=== PATIENT | male | born 1985 | race Hispanic/Latino ===

== ENCOUNTER 2019-08-03 18:42 | Inpatient (IN) | payer SELFPAY, OTHER ==
[~2019-08-03] VITALS: Ht 180.3 cm; Wt 113.4 kg
--- OUTSIDE RECORDS SUMMARY | 2019-08-03 18:45 | XMS REPORT ---
[facility] Unknown Phone Unavailable Care Team Providers Care Sweet Pickle Maker Name Role Phone Unavailable Unavailable Payers Payer Name Policy Type Policy Number Effective Date Expiration Date Problems This patient has no known problems. Allergies, Adverse Reactions, Alerts Allergy Name Allergy Type Status Severity Reaction(s) Onset Date Inactive Date Treating Clinician Comments No Known Allergies DA Active U 2013-08-06 00:00:00 Medications This patient has no known medications. Results Test Description Test Time Test Comments Text Results Atomic Results Result Comments STREPTOCOCCUS PCR SCREEN 2019-08-02 08:41:00 STREPTOCOCCUS DYSGALACTIAE (test code=STREPGC) NEGATIVE FOR G/C NEGATIVE STREPA MOLECULAR (test code=STREPAMOL) NEGATIVE FOR GRP A NEGATIVE
[2019-08-03] MEDS ORDERED: PIPER-TAZ 3.375 GM 50 ML IV STA (20:20)
[2019-08-03] MEDS ORDERED: ACETAMINOPHEN 325 MG TAB PO ONE (20:30)
--- NOTE | 2019-08-03 20:30 | Diagnostic Imaging Report ---
EXAMINATION: CHEST SINGLE (PORTABLE) INDICATION: ^Y ^cough ^[id number] ^1950 COMPARISON: None FINDINGS: AP view TUBES and LINES: None. LUNGS: Lungs are well inflated. Mild bilateral hilar reticular opacities. No lobar consolidations. No pulmonary edema. PLEURA: No pleural effusion or pneumothorax. HEART AND MEDIASTINUM: The cardiomediastinal silhouette is unremarkable.. BONES AND SOFT TISSUES: No acute osseous lesion. Soft tissues are unremarkable. UPPER ABDOMEN: No free air under the diaphragm. IMPRESSION: Nonspecific bilateral hilar peribronchial wall thickening may reflect bronchitis. Signed by: Dr. Kezia Pearce M.D. on 08/03/2019 8:26 PM
[2019-08-03] MEDS ORDERED: PIPER-TAZ 3.375 GM 50 ML ONE (20:40)
[2019-08-03 21:09] LABS: BASOPHILS % 0.2 % (0.0-1.0); EOSINOPHILS % 0.4 % (0.0-6.0); HEMATOCRIT 45.4 % (38.2-49.6); HEMOGLOBIN 15.8 g/dL (14.0-18.0); LYMPHOCYTES % 18.7 % (18.0-39.1); MEAN CORPUSCULAR HEMOGLOBIN 30.2 pg (28-32); MEAN CORPUSCULAR HGB CONC 34.8 g/dL (31-35); MEAN CORPUSCULAR VOLUME 86.6 fL (81-99); MONOCYTES # (AUTO) 0.4 (0.2-0.8); MONOCYTES % 7.3 % (4.4-11.3); PLATELET COUNT 183 x10e3/uL (140-360); RED BLOOD COUNT 5.24 x10e6/uL (4.3-5.7)
[2019-08-03] MEDS ORDERED: SODIUM CHLORIDE 0.9% 1000ML 1,000 ML ONE (21:10)
[2019-08-03] MEDS ORDERED: SODIUM CHLORIDE 0.9% 1000ML 1,000 ML IV ONE (21:15)
[2019-08-03 21:23] LABS: ALANINE AMINOTRANSFERASE 80 IU/L (0-55); ALBUMIN 3.8 g/dL (3.5-5.0); ALBUMIN/GLOBULIN RATIO 1.1 (0.8-2.0); ALKALINE PHOSPHATASE 100 IU/L (40-150); ANION GAP 14.8 mmol/L (8-16); BLOOD UREA NITROGEN 12 mg/dL (7-26); BUN/CREATININE RATIO 10 (6-25); CARBON DIOXIDE 25 mmol/L (22-29); CHLORIDE 99 mmol/L (98-107); CREATINE KINASE 66 IU/L (30-200); CREATININE, SERUM 1.22 mg/dL (0.72-1.25); EST GLOMERULAR FILTRATION RATE > 60 ML/MIN (60-); GLUCOSE 103 mg/dL (74-118); POTASSIUM 3.8 mmol/L (3.5-5.1); SODIUM 135 mmol/L (136-145)
--- NOTE | 2019-08-03 22:30 | NUR ---
PT RESTING, VITAL SIGNS STABLE, PT TO BE ADMITTED, PT AWARE OF POC, PT VOICES NO COMPLAINTS AT THIS TIME.
[2019-08-04] VITALS (7 sets, daily range): BP systolic 108–139; BP diastolic 59–79
[2019-08-04] MEDS: SODIUM CHLORIDE 0.9% 1000ML 1,000 ML IV SCH ×2 (01:15→08:39)
[2019-08-04] MEDS: BENZONATATE 100 MG CAP PO PRN ×2 (04:53→11:10)
[2019-08-04] MEDS: ACETAMINOPHEN 325 MG TAB PO PRN ×2 (04:53→12:14)
[2019-08-04 05:06] LABS: BASOPHILS % 0.3 % (0.0-1.0); EOSINOPHILS % 0.5 % (0.0-6.0); HEMATOCRIT 41.3 % (38.2-49.6); LYMPHOCYTES # (AUTO) 1.1 (1.0-3.2); LYMPHOCYTES % 27.3 % (18.0-39.1); MEAN CORPUSCULAR HEMOGLOBIN 29.9 pg (28-32); MEAN CORPUSCULAR HGB CONC 33.9 g/dL (31-35); MEAN CORPUSCULAR VOLUME 88.1 fL (81-99); MONOCYTES # (AUTO) 0.3 (0.2-0.8); MONOCYTES % 7.1 % (4.4-11.3); NEUTROPHILS # (AUTO) 2.5 (2.1-6.9); NEUTROPHILS % 64.3 % (38.7-80.0); PLATELET COUNT 155 x10e3/uL (140-360); RED BLOOD COUNT 4.69 x10e6/uL (4.3-5.7); RED CELL DISTRIBUTION WIDTH 11.9 % (11.7-14.4)
[2019-08-04 05:29] LABS: ALANINE AMINOTRANSFERASE 70 IU/L (0-55); ALBUMIN 3.3 g/dL (3.5-5.0); ALKALINE PHOSPHATASE 88 IU/L (40-150); ANION GAP 11.8 mmol/L (8-16); BILIRUBIN,DIRECT 0.5 mg/dL (0.0-0.5); BLOOD UREA NITROGEN 12 mg/dL (7-26); BUN/CREATININE RATIO 10 (6-25); CALCIUM 8.2 mg/dL (8.4-10.2); CARBON DIOXIDE 26 mmol/L (22-29); CHLORIDE 103 mmol/L (98-107); CREATININE, SERUM 1.16 mg/dL (0.72-1.25); EST GLOMERULAR FILTRATION RATE > 60 ML/MIN (60-); GLUCOSE 95 mg/dL (74-118); POTASSIUM 3.8 mmol/L (3.5-5.1); SODIUM 137 mmol/L (136-145)
--- NOTE | 2019-08-04 07:12 | NUR ---
RECEIVED PATIENT RESTING IN BED NO S/S OF DISTRESS. BED LOW, WHEELS LOCKED, SIDE RAILS X2. CALL LIGHT IN REACH WILL CONTINUE TO MONITOR PATIENT.
--- NOTE | 2019-08-04 08:21 | NUR ---
GAVE PACKET OF INFORMATION WITH COMMUNITY [employer] FOR ASSISTANCE WITH LOW TO NO INCOME TO PATIENT. RESOURCES THAT PATIENT MAY BE ABLE TO FOLLOW UP UPON DISCHARGE. PT EDUCATED ON EACH RESOURCE AND UNDERSTANDING HOW TO FOLLOW UP TO SEE IF QUALIFIED FOR EACH RESOURCE.
--- NOTE | 2019-08-04 08:58 | NUR ---
Telephonic visit. Pt. expressed no spiritual or emotional concerns at this time. Concrete Technician provided hospitality and information on how to reach kelly machine operator, if needed. No need to follow at this time. CHILANGO TAYLOR Concrete Technician Spiritual Care Department O: [phone]
[2019-08-04] MEDS ORDERED: PIPER-TAZ 3.375 GM 50 ML IV SCH (12:00)
--- NOTE | 2019-08-04 12:39 | History and Physical ---
HISTORY OF PRESENT ILLNESS: A 33-year-old male with no past medical history, came here with cough and fever. The patient has been placed in the coronavirus unit to rule out COVID-19. REVIEW OF SYSTEMS: CARDIOVASCULAR: No chest pain or palpitation. RESPIRATORY: He did have cough, but no shortness of breath. GASTROINTESTINAL: No nausea or vomiting. No diarrhea. GENITOURINARY: No frequency or dysuria. ALLERGIES: NOT ALLERGIC TO ANYTHING. PAST MEDICAL HISTORY: Negative for any significant medical conditions. PHYSICAL EXAMINATION: HEART: Showed regular rhythm. Normal S1 and S2 sound. LUNGS: Clear bilaterally. ABDOMEN: Soft. EXTREMITIES: Show no evidence of cyanosis or hematoma. VITAL SIGNS: Temperature is 99.4, heart rate 85 per minute, respiratory rate 18 per minute, blood pressure 108/59, pulse oximetry 95%. LABORATORY DATA: Chest x-ray showed nonspecific bilaterally, peribronchial wall thickening may reflect bronchitis. Coronavirus test is pending. Influenza A and B tests are negative. On the CBC; white count 3.95, hemoglobin 14.0, hematocrit 41.3, and platelet count 155,000. On the CMP; sodium 137, potassium 3.8, chloride 103, CO2 of 26, anion gap 11.8, BUN 12, creatinine 1.16, GFR 60, glucose 95. Lactic acid 0.7, calcium 8.2, total bilirubin 1.1, direct bilirubin 0.5, AST 33, ALT 70, alkaline phosphatase 88, total protein 6.5, albumin 3.3, globulin 3.2, albumin and globin ratio 1.0. FINAL IMPRESSION: 1. Acute bronchitis. 2. Fever, rule out COVID-19 infection. PLAN OF TREATMENT: The patient is going to continue with Tessalon Perles 100 mg q.6 hours as needed for cough, Tylenol 650 mg q.4 hours as needed for pain or fever. He has been empirically started on Zosyn 3.375 g IV q.[address] Prakash in the meantime for Infectious Diseases. We are going to order a CT of the chest also to rule out any pneumonia. The patient is assessed in contact and respiratory isolation. MD ANGELICA Plasencia/MODL /[id number]
[2019-08-04] MEDS ORDERED: GUAIFENESIN/DEXTROMETHORPHAN LIQD 5 ML UDC PO PRN (12:45)
[2019-08-04] MEDS ORDERED: ZITHROMAX1 GM (13:27)
[2019-08-04] MEDS ORDERED: AUGMENTIN 875-1 EACH PO (13:29)
--- NOTE | 2019-08-04 13:29 | Consultation ---
DATE OF CONSULTATION: HISTORY OF PRESENT ILLNESS: Mr. Galaviz is a very pleasant 33-year-old male. Denies any past medical history. He does have underlying history of obesity. The patient comes in with cough and fever. He has been sick for 3 to 4 days. He went to [facility]. They gave him a cough syrup and discharged home, but since we were in the mid of COVID-19 epidemic, the patient came back here where he is admitted. The test was sent. PAST MEDICAL HISTORY: Denies. PAST SURGICAL HISTORY: Denies. ALLERGIES: NKA. SOCIAL HISTORY: Denies smoking, drug abuse, or alcohol abuse. FAMILY HISTORY: Otherwise noncontributory. REVIEW OF SYSTEMS: When I saw the patient today, he said he is feeling better. His cough is better. He has been running low fever, but he is not short of breath. PHYSICAL EXAMINATION: GENERAL: He is currently alert, oriented, does not seem to be in acute distress. VITAL SIGNS: Stable, currently afebrile except for 100.4. HEENT: He is not icteric. NECK: Supple. CHEST: Clear bilateral. HEART: S1 and S2. No S3, S4, or murmur. ABDOMEN: Soft. Bowel sounds present. No tenderness. EXTREMITIES: No edema. SKIN: No rash. IMPRESSION: Bronchitis, viral, maybe COVID-19. His test was sent; however, clinically the patient looks really good. The patient could be discharged home with a Z-Juan and 5 days of Augmentin. Follow up as an outpatient. Call me if he get worse. To stay for 2 weeks until we get COVID-19 in quarantine. Carolann SALGADO p.r.n., and follow up as needed and to call me if needed. Discussed with Internal Medicine and discussed with Medical Team. MD CHRISTOPHER Nayak/CARSON /[id number]
--- NOTE | 2019-08-04 14:15 | NUR ---
REMOVED PATIENTS IV. CATHETER TIP INTACT AND PRESSURE DRESSING APPLIED.
--- NOTE | 2019-08-04 15:17 | NUR ---
patient discahrged from facility. patient gathered all personal belongings, discharge instructions, and follow up information. patient left unit via wheelchair and went home private auto. no s/s of distress when leaving facility.
--- NOTE | 2019-08-04 19:46 | Discharge Summary ---
HOSPITAL COURSE: A 33 years old male with no past medical history, came here with cough and fever. The patient was diagnosed with upper respiratory infection. Dr. Prakash infectious Disease saw the patient. He recommended the patient to be discharged home today on Z-Juan, and also on contact and respiratory isolation at home for at least 14 days. They checked for COVID-19, have been sent, but it will take at least three days, so I have discussed the case with Dr. Prakash, Infectious Disease store sales consultant. He recommended the patient can go home with oral Zithromax and contact isolation for 14 days and wait for the report to be ready. The patient has no respiratory distress. Oxygen is fine. He has no fever, no hypotension, no significant respiratory symptoms except for the cough. PHYSICAL EXAMINATION: HEART: Showed regular rhythm. Normal S1, S2 sound. LUNGS: Clear bilaterally. FINAL IMPRESSION: 1. Acute bronchitis, rule out COVID-19 infection. 2. Obesity. The patient going today home on Zithromax for 5 days, which is a Z-Juan, and he has been recommended by Dr. Prakash and also myself to be on contact respiratory isolation for at least a couple of weeks while the test is in process, which will take three days. He is going to follow up with Dr. Prakash also in a couple of weeks and of course the patient is to go to the emergency room if his symptoms worsen, especially shortness of breath. The patient is aware of the discharge planning. I discussed the case with Dr. Prakash on the phone and the nurse. The patient going home today. MD ANGELICA Plasencia/CARSON /[id number]
--- NOTE | 2019-08-05 06:53 | Consultation ---
DATE OF CONSULTATION: 08/04/2019 HISTORY OF PRESENT ILLNESS: Mr. Galaviz is a 33-year-old male, comes in with fever, chills, and shortness of breath. The patient comes in with DICTATION ENDS HERE MD CHRISTOPHER Nayak/CARSON /[id number]
== END 2019-08-04 15:17 | disposition home or self-care (01) | DRG 177 ==
LOC: ER 18:42 → ERHOLD 23:52 → IMCU 08-04 00:18 → OBSVTOIN 08-04 11:39
PROVIDERS: ADMIT Internal Medicine; ATTEND Internal Medicine
PROC: 8E0ZXY6 Isolation (ICD-10-PCS; principal; 2019-08-04)
DX: U07.1 COVID-19 (principal); A41.9 Sepsis, unspecified organism; R65.20 Severe sepsis without septic shock; J20.8 Acute bronchitis due to other specified organisms; E66.9 Obesity, unspecified; Z68.34 Body mass index [BMI] 34.0-34.9, adult
CPT/HCPCS: 36415; 71045; 80053; 80076; 82550; 82553; 83605; 84484; 85025; 87040; 87400; 87635; 99284; G0378; J2543; J7030